=== PATIENT | female | born 1965 | race Caucasian/White ===

== ENCOUNTER 2018-01-12 12:20 | Emergency (ER) | payer OTHER ==
[~2018-01-12] VITALS: Ht 154.9 cm; Wt 62.3 kg
[~2018-01-12 12:20] MED LIST: Feosol PO; Motrin PO; ~No Medications
[2018-01-12] MEDS ORDERED: ULTRAM50 MG PO (13:14)
[2018-01-12 13:52] VITALS: BP 110/78
== END 2018-01-12 13:56 | disposition home or self-care (01) ==
LOC: EME 12:20
PROC: 2W3QX1Z Immobilization of Right Lower Leg using Splint (ICD-10-PCS; principal; 2018-01-12)
DX: S89.91XA Unspecified injury of right lower leg, initial encounter (principal); W17.89XA Other fall from one level to another, initial encounter; Y93.39 Activity, other involving climbing, rappelling and jumping off; Z88.1 Allergy status to other antibiotic agents; Z88.0 Allergy status to penicillin; Z88.2 Allergy status to sulfonamides; Z88.5 Allergy status to narcotic agent; Z91.040 Latex allergy status
CPT/HCPCS: 73564; 73610; 99281; 99284